=== PATIENT | female | born 1980 | race Caucasian/White ===

== ENCOUNTER 2018-03-12 13:13 | Emergency (ER) | payer OTHER, SELFPAY ==
[2018-03-12 13:14] VITALS: BP 148/98; PULSE 124; RESP 12; TEMP 37.3; O2SAT 96; BMI 43.4
[2018-03-12 14:25] LABS: Absolute Lymphocyte Count 1.93 X10^3/ul (0.83-4.51); Absolute Neutrophil Count 4.5 X10^3/uL (2.0-7.7); Basophil# 0.03 X10^3/uL; Basophil% 0.4 % (0-1); Eosinophil# 0.16 X10^3/uL; Eosinophils% 2.3 % (0-5); Hematocrit 41.3 % (37-47); Hemoglobin 14.5 g/dl (12.0-15.0); Lymphocyte # 1.93 X10^3/ul (4.0); Lymphocyte % 27.4 % (19-41); Mean Corp Hgb Conc 35.1 g/gl (32-36); Mean Corpuscular Hgb 31.7 pg (27.0-32.0); Mean Corpuscular Volume 90.4 fL (81-99); Mean Platelet Vol. 9.2 fl (6.2-12.0); Monocyte# 0.46 X10^3/uL; Monocyte% 6.5 % (0-10); Neutrophil # 4.45 X10^3/uL (2.7-7.7); Neutrophil % 63.1 % (47-70); Platelet Count 393 K/mm3 (150-450); RBC Distribution Width CV 12.8 % (11.6-14.6); RBC Distribution Width SD 41.8 fl (35.1-43.9); Red Blood Count 4.57 M/mm3 (4.2-5.4); White Blood Count 7.1 K/mm3 (4.4-11.0)
[2018-03-12 14:30] LABS: POSITIVE COUNT NO; POSITIVE DIFFERENTIAL NO; POSITIVE MORPHOLOGY NO
[2018-03-12 14:34] LABS: ALB/GLOB Ratio 1.1 RATIO (0.9-2.4); AST(SGOT) 16 U/L (15-37); Alanine Aminotransfer ALT/SGPT 23 U/L (13-56); Alkaline Phosphatase 97 U/L (45-117); Anion Gap 9 (5-15); BUN 10 mg/dL (7-18); BUN/Creat Ratio 11.2 RATIO (10-20); Calcium,Total 8.8 mg/dL (8.5-10.1); Chloride 105 mmol/L (98-107); EST Glomerular Filtration Rate 74 mL/min (>60); Est Glom Filt Rate - Afr Amer 90 mL/min (>60); Globulin 3.8 g/dL (2.2-4.2); Glucose 83 mg/dL (74-106); Potassium 3.7 mmol/L (3.5-5.1); Pregnancy, Serum, hCG Quali. NEGATIVE Negative (0-9 Nonpreg); Protein, Total 7.8 g/dL (6.4-8.2); Sodium Level 139 mmol/L (136-145)
[2018-03-12 14:56] LABS: Salicylate < 1.7 mg/dL (2.8-20.0)
[2018-03-12 14:57] VITALS: BP 126/96; PULSE 118; RESP 18; O2SAT 96
--- NOTE | 2018-03-12 15:12 | ED.RN ---
pt states has been very depressed lately. states when she woke up this am she just felt on the edge of a panic attack. then felt like she just could not go on. states i felt like i could not do it anymore. dr myers aware. states pt needs to be evaluated by crises. states if pt decides she does not want to stay she will be pink slipped
[2018-03-12 15:26] LABS: Acetaminophen (Tylenol) Level < 2.0 ug/mL (10.0-30.0)
[2018-03-12 15:32] VITALS: BP 122/103; PULSE 114; RESP 18
--- NOTE | 2018-03-12 15:34 | NURSING ---
CALLED CRISIS. WHEN SOMEONE IS AVAILABLE, THEY WILL COME OVER
--- NOTE | 2018-03-12 16:00 | ED.DCSUM_ITS ---
- ER Visit Summary Date of Service: 03/12/18 Chief Complaint: Overdose History of Present Illness: The patient is a 37 F presenting after overdose. Patient states she slept all night, when she woke up around 8 AM she took 10 Ambien. She states she just wanted to go back to sleep. She missed work. Her work called her around 11 AM and advised him that she did not show up for work. He went home to check on her and she was sleeping. She has made comments to the nurses that she has been very depressed and does not want to go on. She is on Prozac and Wellbutrin. She denies alcohol or drug use. Denies past suicide attempts. Physical Examination: Vitals are stable. Patient is afebrile. Alert no acute distress. HEENT exam is unremarkable. Neck is supple. Lungs are clear and equal bilaterally. Heart is regular rate and rhythm. Abdomen is soft nontender nondistended. Extremities are unremarkable. Skin is warm and dry. No focal neurologic deficit. Depressed affect Remainder of exam is unremarkable. Emergency Department Course and Treatment: CBC, chemistries unremarkable. HCG negative. Salicylate and Tylenol levels are negative. Alcohol is negative. Tox is pending. Discussed with the counseling center for evaluation. Disposition: Per counseling center Impression: Overdose, suicidal gesture This note was generated with Pace[employer] dictation software. It may contain incorrect words, spelling, and punctuation that were not noted in review of the chart prior to signing ED Disposition - Plan for ED Patient: Chief Complaint: Overdose Referrals: Stanley Giron DO [Primary Care Provider] -
[2018-03-12 16:01] LABS: Amphetamine Urine VISTA NEGATIVE (<1000 ng/mL); Barbiturate Urine VISTA NEGATIVE (< 200 ng/mL); Benzodiazepine Urine VISTA NEGATIVE (< 200 ng/mL); Cocaine Urine VISTA NEGATIVE (< 300 ng/mL); Ecstacy Urine VISTA POSITIVE (< 500 ng/mL); Methadone Urine VISTA NEGATIVE (< 300 ng/mL); PCP Urine VISTA NEGATIVE (< 25 ng/mL); THC Urine VISTA NEGATIVE (< 50 ng/mL); Vista UDS pH Range 6
[2018-03-12 16:11] VITALS: BP 146/101; PULSE 107; RESP 16; O2SAT 94
--- NOTE | 2018-03-12 16:41 | NURSING ---
CALLED CRISIS. 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
--- NOTE | 2018-03-12 17:44 | NURSING ---
HELEN, CRISIS, HERE
[2018-03-12 18:03] VITALS: BP 147/115; PULSE 110; RESP 18
--- NOTE | 2018-03-12 18:52 | ED.VISSUMM ---
- ER Visit Summary Date of Service: 03/12/18 Chief Complaint: [Addendum to initial dictation by Dr. Susanne Mcmillan] History of Present Illness: The patient is a 37 F [presented to the emergency department after ingesting 10 Ambien this morning. Patient was evaluated by crisis and I was asked to take over care of patient is Dr. Mcmillan shift was over. Crisis did not feel patient was suicidal and their recommendation is that she be discharged to home with close outpatient follow-up. Crisis spoke with Dr. Mcmillan who agreed to plan. Patient at this time denying suicidal ideation and she and her both feel comfortable going home with close outpatient follow-up. Patient denied making a suicidal gesture this morning but states that she just wanted to sleep and she had a panic attack.] Physical Examination: [HEENT-PERRLA, EOMI. Cranial nerves II through XII grossly intact. TMs clear. Mucous membranes moist. No adenopathy. Cardiovascular-regular rate and rhythm without murmur or ectopy Lungs-clear to auscultation, chest wall stable without crepitus or subcu emphysema Abdomen-normoactive bowel sounds, soft, nontender, no rebound or rigidity, no peritoneal signs. Extremities-intact ?4, normal range of motion, normal pulses, atraumatic] Test Results: [] Emergency Department Course and Treatment: [] Treatment Plan: [Discharged home with follow-up with crisis] Disposition: [Discharge] Impression: [Depression Accidental overdose] This note was generated with The[employer]or[employer] dictation software. It may contain incorrect words, spelling, and punctuation that were not noted in review of the chart prior to signing ED Disposition - Plan for ED Patient: Chief Complaint: Overdose Referrals: Stanley Giron DO [Primary Care Provider] -
--- NOTE | 2018-03-12 18:54 | ED.DEP ---
ED Disposition - Plan for ED Patient: Chief Complaint: Overdose Instructions: ED Overdose Accidental, ED Depression Referrals: Stanley Giron DO [Primary Care Provider] - Additional Instructions: follow up with crisis as instructed
[2018-03-12 19:11] VITALS: BP 132/91; PULSE 81; RESP 18; O2SAT 100
--- NOTE | 2018-03-12 19:11 | ED.RN ---
THIS NURSE REVIEWED D/C INSTRUCTIONS WITH PT. PT VERBALIZED UNDERSTANDING OF INSTRUCTIONS. IV D/C. IV CATHETER INTACT. PT TOLERATED WELL. PT DENIES FURTHER NEEDS OR QUESTIONS AT THIS TIME
== END 2018-03-12 19:12 | disposition home or self-care (01) ==
PROVIDERS: Emergency Provider Emergency Medicine; Family Provider Student in an Organized Health Care Education/Training Program; PCP Student in an Organized Health Care Education/Training Program
DX: T42.6X1A Poisoning by other antiepileptic and sedative-hypnotic drugs, accidental (unintentional), initial encounter (principal); Y92.009 Unspecified place in unspecified non-institutional (private) residence as the place of occurrence of the external cause; F32.9 Major depressive disorder, single episode, unspecified
CPT/HCPCS: 80053; 80307; 80320; 80329; 84703; 85025; 99283; A4216; G0480

== ENCOUNTER 2018-10-19 15:32 | Emergency (ER) | payer OTHER, SELFPAY ==
[2018-10-19 15:33] VITALS: BP 134/87; PULSE 92; RESP 16; TEMP 36.6; O2SAT 95; BMI 44.1
--- NOTE | 2018-10-19 16:37 | ED.VISSUMM ---
- ER Visit Summary Date of Service: 10/19/18 Chief Complaint: Wound check History of Present Illness: The patient is a 38 F who had gastric bypass surgery on October 10. She noted a wound on the left side of the abdomen to be more red today. She has noted some recent drainage of yellow tinged thin fluid. She denies fever or chills. She spoke with the gastric bypass surgery group at [place] and was advised to come to the emergency room. We are to call them with a report. Physical Examination: Vital signs unremarkable. Patient's lying in bed no acute distress. She is nontoxic appearing. Heart is regular rate and rhythm without murmur. Lung sounds are clear. Abdomen is soft with no significant focal tenderness. The left abdominal wall surgical incision has a 2 x 3 cm area of cellulitis surrounding it. The lateral 3 mm of the wound is dehisced with drainage of serosanguineous fluid. No palpable abscess is noted. Test Results: [] Emergency Department Course and Treatment: Bedside ultrasound was performed that showed an approximately 1 x 1.5 cm clear fluid collection at the point of interest. I spoke with Dr. Cardenas via 1 of the surgical residents at [facility]. He asked that the wound be opened and wet-to-dry dressings placed. 5 cc 1% lidocaine was infused along the incision. The wound was opened. There is drainage of serous fluid. Wound is cleansed and wet-to-dry dressings are applied. Patient is given supplies for wet-to-dry dressings twice a day. The surgical office will call her on Monday with follow-up. Patient will be placed on Bactrim and Keflex. Treatment Plan: [] Disposition: Discharge Impression: 1. Cellulitis of surgical wound 2. Seroma status post I&D This note was generated with Jibestream dictation software. It may contain incorrect words, spelling, and punctuation that were not noted in review of the chart prior to signing ED Disposition - Plan for ED Patient: Chief Complaint: Wound Check Referrals: Stanley Giron DO [Primary Care Provider] -
--- NOTE | 2018-10-19 16:39 | ED.DEP ---
ED Disposition - Plan for ED Patient: Disposition: Home or Assisted Living Chief Complaint: Wound Check Instructions: ED Wound Infec After Surgery Prescriptions: Cephalexin [Keflex] 500 mg PO Q6 #40 capsule Smz/Tmp Ds [Bactrim Ds] 1 tablet PO BID #20 tablet Referrals: Stanley Giron DO [Primary Care Provider] - Additional Instructions: Surgical office will contact you on Monday for follow-up. Wet-to-dry dressing changes twice a day as discussed.
[2018-10-19] MEDS: Cephalexin 250 MG Capsule 500 MG PO (16:46)
[2018-10-19] MEDS: Smz/Tmp Ds Tablet 1 TABLET PO (16:47)
[2018-10-19 16:50] VITALS: BP 130/78; PULSE 80; RESP 16; O2SAT 99
== END 2018-10-19 16:51 | disposition home or self-care (01) ==
PROVIDERS: Emergency Provider Emergency Medicine; Family Provider Student in an Organized Health Care Education/Training Program; PCP Student in an Organized Health Care Education/Training Program
DX: L76.34 Postprocedural seroma of skin and subcutaneous tissue following other procedure (principal); T81.41XA Infection following a procedure, superficial incisional surgical site, initial encounter; L03.311 Cellulitis of abdominal wall; B96.89 Other specified bacterial agents as the cause of diseases classified elsewhere; T81.31XA Disruption of external operation (surgical) wound, not elsewhere classified, initial encounter; Z98.84 Bariatric surgery status; F32.9 Major depressive disorder, single episode, unspecified
CPT/HCPCS: 10140; 10060; 99284

== ENCOUNTER 2021-08-28 05:21 | Emergency (ER) | payer OTHER, SELFPAY ==
[2021-08-28 05:21] VITALS: BP 128/79; PULSE 70; RESP 28; TEMP 36.3; O2SAT 95; BMI 32.8
--- NOTE | 2021-08-28 05:37 | EKG12_ITS ---
Test Reason : DYSRHYTHMIA Blood Pressure : / mmHG Vent. Rate : 067 BPM Atrial Rate : 067 BPM P-R Int : 138 ms QRS Dur : 076 ms QT Int : 416 ms P-R-T Axes : 028 018 021 degrees QTc Int : 439 ms Normal sinus rhythm Normal ECG Confirmed by NATI ALCALA, JULITA ([id number]), writer editor HARLEY DALY ([id number]) on 08/30/2021 1:18:23 PM Referred By: YASH Confirmed By:JULITA DAMIAN MD
--- NOTE | 2021-08-28 05:37 | ED.VIS.DYS ---
HPI History of Present Illness Chief Complaint: Shortness of Breath Informant: patient Narrative Narrative: 41-year-old female Covid positive day 11 presenting to the emergency department with shortness of breath. The patient reports that she took a home Covid test that was positive. She states her had at first. She notes shortness of breath has gotten significantly worse today she is having pain in the anterior aspect of her chest particularly deep breathing and with coughing. No hemoptysis. She has a history of asthma. [facility] Medical History Asthma Home Medications bupropion HCl 300 mg PO DAILY 03/12/18 [History Last Taken Unknown] fluoxetine 40 mg PO DAILY 03/12/18 [History Last Taken Unknown] albuterol sulfate 2 puff INHALATION Q6H PRN 08/28/21 [History Last Taken Unknown] dexamethasone 6 mg PO DAILY #5 tab 08/28/21 [Rx Last Taken Unknown] Allergy/AdvReac Type Severity Reaction Status Date / Time codeine AdvReac Nausea Verified 08/28/21 05:26 Surgical History Gastric bypass status for obesity Social History (Updated 08/28/21 @ 05:[address] Tr Scott DO) Smoking Status: Never smoker substance use type: does not use ROS ROS ED Constitutional Constitutional ED: Reports fever(s); Denies chills or weight loss Eyes Eyes: Denies change in vision or diplopia ENT ENT ED: Denies ear pain, rhinorrhea or sore throat Cardiovascular Cardiovascular: Denies chest pain, orthopnea, palpitations or racing heartbeat Respiratory/Chest Respiratory/Chest: Reports cough, dyspnea and dyspnea on exertion; Denies orthopnea Gastrointestinal Gastrointestinal: Reports diarrhea; Denies abdominal pain, nausea or vomiting Genitourinary Genitourinary ED: Denies dysuria, hematuria or urinary frequency Musculoskeletal Musculoskeletal: Reports myalgias; Denies arthralgias Integumentary Denies abscess or rash Neurologic Neurologic: Reports headache(s); Denies weakness Psychiatric Psychiatric: Denies anxiety, depression, suicidal ideation or suicidal thoughts Endocrine Endocrinology: Denies polydipsia, polyphagia or polyuria Allergic/Immunologic Allergic/Immunologic ED: Denies mouth swelling, tongue swelling or urticaria EXAM Physical Exam Const Vital Signs: 08/28/21 05:21 Temperature 97.4 F L Temperature Source Temporal Pulse Rate 70 Respiratory Rate 28 H Blood Pressure 128/79 H Blood Pressure Mean 95 Pulse Ox 95 Oxygen Delivery Method Room Air Positive well nourished and well developed General Appearance ED: well developed HEENT Reports normocephalic, head/scalp atraumatic and moist mucous membranes Eyes PERRL and EOMs intact bilaterally Neck no lymphadenopathy, supple and no JVD Resp clear to auscultation bilaterally Resp Narrative: Patient appears tachypneic but able to speak in full sentences Cardio regular rate, regular rhythm and no murmurs GI normal to inspection, nondistended, normoactive bowel sounds and non-tender Palpation: soft Back/Spine no CVA tenderness and normal ROM Extremity normal to inspection General Extremety ED: Negative for edema General Extremity: Negative for edema Neuro oriented x3 and CN's II-XII intact bilaterally Sensorium / Orientation: alert Motor Exam: strength 5/5 throughout Psych mental status grossly normal Mood & Affect: Negative for depressed or tearful Skin no rashes or lesions noted and no wounds MDM MDM MDM Narrative Medical decision making narrative: Basic blood work was obtained and shows a white count of 5.8 hemoglobin of 11.8. Lactic acid 1.7. Troponin high-sensitivity 5. CTA of the chest shows no pulmonary embolism. There is multifocal areas of infiltrate consistent with COVID-19. This point patient is not requiring any supplemental oxygen. While she is resting her breathing is at 18. When she wakes up her breathing increases. Patient will be started on Decadron. She has an inhaler. Lab Data Attestation: I reviewed the patient's lab results. Labs: Laboratory Results - last 24 hr 08/28/21 08/28/21 08/28/21 05:50 05:50 05:50 WBC 5.8 RBC 3.84 L Hgb 11.8 L Hct 35.4 L MCV 92.2 MCH 30.7 MCHC 33.3 RDW Std Deviation 41.1 RDW Coeff of Kirt 12.2 Plt Count 240 MPV 10.6 Immature Gran % (Auto) 0.300 Neut % (Auto) 77.4 H Lymph % (Auto) 18.7 L Cataño % (Auto) 3.4 Eos % (Auto) 0.0 Baso % (Auto) 0.2 Absolute Neuts (auto) 4.5 Absolute Lymphs (auto) 1.09 Nucleated RBC % 0 Sodium 140 Potassium 3.5 Chloride 105 Carbon Dioxide 26.0 Anion Gap 9 BUN 9 Creatinine 0.72 Estim Creat Clear Calc 113.40 Est GFR (MDRD) Af Amer 115 Est GFR (MDRD) Non-Af 95 BUN/Creatinine Ratio 12.6 Glucose 104 Lactic Acid 1.7 Calcium 8.3 L Total Bilirubin 0.20 AST 33 ALT 35 Alkaline Phosphatase 107 Troponin I High Sens 5 Total Protein 7.2 Albumin 3.2 Globulin 4.0 Albumin/Globulin Ratio 0.8 L Radiography Diagnostic Testing: Radiology Impression Chest CTA 08/28/21 06:15 IMPRESSION: Bilateral multifocal pneumonia. Normal CTA chest examination, without a demonstrated pulmonary embolism or arterial dissection. Electronically Signed: Pop Morley MD at 6:54 EDT Tel , Service support , EKG Initial EKG: Attestation: I personally reviewed and interpreted this EKG as follows: Comments: Normal sinus rhythm with a ventricular rate of 67 bpm Discharge Plan Triage Chief Complaint: Shortness of Breath ED Provider: Tr Scott Dx/Rx/DC Orders Clinical Impression: COVID-19, Acute dyspnea Instructions: Coronavirus Disease 2019 (COVID-19): Caring for Yourself or Others Prescriptions: New dexamethasone 6 MG tablet 6 mg PO DAILY Qty: 5 RF: 0 No Action fluoxetine 40 MG capsule 40 mg PO DAILY RF: 0 bupropion HCl 300 MG tablet extended release 24 hr 300 mg PO DAILY RF: 0 albuterol sulfate 90 mcg/actuation Hfa Aerosol Inhaler 2 puff INHALATION Q6H PRN (Reason: SHORT) RF: 0 Primary Care Provider: Stanley Giron Referrals: Stanley Giron DO [Primary Care Provider] - As Needed Disposition Disposition: Home, Self Care
[2021-08-28] MEDS: Ketorolac 30 MG/ML Syringe IV (05:54)
[2021-08-28 06:07] LABS: Absolute Lymphocyte Count 1.09 X10^3/uL (0.83-4.51); Absolute Neutrophil Count 4.5 X10^3/uL (2.0-7.7); Basophil# 0.01 X10^3/uL; Basophil% 0.2 % (0-1); Hematocrit 35.4 % (37-47); Hemoglobin 11.8 g/dL (12.0-15.0); Lymphocyte # 1.09 X10^3/ul (0.83-4.51); Lymphocyte % 18.7 % (19-41); Mean Corp Hgb Conc 33.3 g/dL (32-36); Mean Corpuscular Hgb 30.7 pg (27.0-32.0); Mean Corpuscular Volume 92.2 fL (81-99); Mean Platelet Vol. 10.6 fl (6.2-12.0); Monocyte% 3.4 % (0-10); NRBC Flagged by Analyzer 0 % (0-5); Neutrophil # 4.52 X10^3/uL (2.7-7.7); Neutrophil % 77.4 % (47-70); Platelet Count 240 K/mm3 (150-450); RBC Distribution Width CV 12.2 % (11.6-14.6); RBC Distribution Width SD 41.1 fl (35.1-43.9); Red Blood Count 3.84 M/mm3 (4.2-5.4); White Blood Count 5.8 K/mm3 (4.4-11.0)
--- NOTE | 2021-08-28 06:15 | CT_ITS ---
STUDY: CTA CHEST REASON FOR EXAM: Female, 41 years old. Covid 19, increased shortness of breath, pulmonary embolism RADIATION DOSAGE (If Supplied By Facility): CTDIvol = ( 8.31 ) mGy, DLP = ( 273.03 ) mGycm TECHNIQUE: The examination was performed with the intravenous administration of IV 100mL Isovue-370. Post-processing of the angiographic images was performed, with multiplanar reformation and 3D reconstruction. Individualized dose optimization techniques were used for this CT. COMPARISON: None. FINDINGS: Normal enhancement of the main pulmonary artery and right and left pulmonary arteries. Normal enhancement of the bilateral peripheral pulmonary arteries. There is no demonstrated pulmonary embolism. Normal thoracic aorta and visualized great vessels. There is no demonstrated aortic dissection. Normal heart and pericardium. Normal mediastinum. Normal hilar regions. Normal visualized trachea and bronchi. The lungs are well expanded. Diffuse bilateral patchy groundglass opacities. Normal pleura. Normal chest wall structures. There are degenerative changes of thoracic spine. Prior upper gastric surgery. CT/CTA Chest W/WO Contrast IMPRESSION: Bilateral multifocal pneumonia. Normal CTA chest examination, without a demonstrated pulmonary embolism or arterial dissection. Electronically Signed: Pop Morley MD at 6:54 EDT Tel , Service support ,
[2021-08-28 06:26] LABS: ALB/GLOB Ratio 0.8 RATIO (0.9-2.4); AST(SGOT) 33 U/L (15-37); Alanine Aminotransfer ALT/SGPT 35 U/L (13-56); Albumin, Serum 3.2 g/dL (3.2-5.0); Alkaline Phosphatase 107 U/L (45-117); Anion Gap 9 (5-15); BUN 9 mg/dL (7-18); BUN/Creat Ratio 12.6 RATIO (10-20); Calcium,Total 8.3 mg/dL (8.5-10.1); Chloride 105 mmol/L (98-107); Creatinine, Serum 0.72 mg/dL (0.55-1.02); EST Glomerular Filtration Rate 95 mL/min (>60); Est Glom Filt Rate - Afr Amer 115 mL/min (>60); Glucose 104 mg/dL (74-106); Potassium 3.5 mmol/L (3.5-5.1); Protein, Total 7.2 g/dL (6.4-8.2); Sodium Level 140 mmol/L (136-145); Troponin-I HS 5 pg/mL (3.0-54.0)
[2021-08-28 06:40] LABS: Lactic Acid 1.7 mmol/L (0.4-1.9)
[2021-08-28 07:21] VITALS: BP 111/70; PULSE 65; RESP 15; O2SAT 97
[2021-08-28] MEDS: dexAMETHasone 4 MG Tablet 6 MG PO (07:33)
== END 2021-08-28 07:40 | disposition home or self-care (01) ==
PROVIDERS: Emergency Provider Emergency Medicine; PCP Student in an Organized Health Care Education/Training Program
DX: U07.1 COVID-19 (principal); R06.00 Dyspnea, unspecified; J45.909 Unspecified asthma, uncomplicated; Z79.899 Other long term (current) drug therapy
CPT/HCPCS: 71275; 80053; 83605; 84484; 85025; 93005; 96374; 99284; J7030; Q9967; A4216

== ENCOUNTER 2021-08-30 13:34 | Emergency (ER) | payer OTHER, SELFPAY ==
[2021-08-30 13:34] VITALS: BP 103/68; PULSE 92; RESP 19; TEMP 37.2; O2SAT 81; BMI 31.3
[2021-08-30 13:36] VITALS: BP 118/77; PULSE 61; PULSE 67; RESP 18; TEMP 37.3; O2SAT 94
--- NOTE | 2021-08-30 14:12 | RAD_ITS ---
STUDY: X-RAY CHEST REASON FOR EXAM: Female, 41 years old. SOB TECHNIQUE: Single AP portable view of the chest. COMPARISON: None. FINDINGS: Patchy alveolar opacities in both lungs consistent with bilateral pneumonia. There is no demonstrated pleural abnormality. Normal size heart. Normal mediastinum and arthur. Normal visualized pulmonary arteries. Normal visualized aortic arch and descending thoracic aorta. Normal visualized thoracic spine. Normal visualized ribs, clavicles, and shoulders. There is no demonstrated abnormality of the visualized soft tissue structures of the upper abdomen. RAD/Chest 1 View IMPRESSION: Bilateral pneumonia. Electronically Signed: Won Mohan MD at 14:26 EDT Tel , Service support ,
[2021-08-30 17:24] VITALS: BP 118/77; PULSE 65; RESP 18; TEMP 37.2; O2SAT 94
[2021-08-30 17:38] VITALS: O2SAT 92
--- NOTE | 2021-08-30 17:59 | ED.VIS.DYS ---
HPI History of Present Illness Chief Complaint: Shortness of Breath Informant: patient and spouse/S.O. Onset/Context/Timing Onset: Days Context: gradual Timing: Continuous Current Severity: Mild Maximum Severity: Mild Worsened by: Exertion Relieved by: Nothing Associated Symptoms cough, fever and chills Chest Pain: Positive for None Narrative Narrative: 41-year-old female diagnosed with COVID-19 last Monday has had 10 days of symptoms. She is on Decadron the last 3 days. She has a pulse ox at home it was dropping as low as 76 earlier today so she came in emergency department. She denies any hemoptysis. No significant chest pain. She is currently not on home O2. Due to the timing she is not a candidate for monoclonal antibody. PE Risk Factors: Negative for Cancer, OCP + Smoking + > 35, Prior DVT or PE, Recent immobilization, Recent surgery and Recent travel Prior similar symptoms: No Recent Illness/Hospitalization: No PFSH PFSH Medical History Asthma Home Medications bupropion HCl 300 mg PO DAILY 03/12/18 [History Last Taken Unknown] fluoxetine 40 mg PO DAILY 03/12/18 [History Last Taken Unknown] albuterol sulfate 2 puff INHALATION Q6H PRN 08/28/21 [History Last Taken Unknown] dexamethasone 6 mg PO DAILY #5 tab 08/28/21 [Rx Last Taken Unknown] dexamethasone [Decadron] 6 mg PO DAILY #7 tab 08/30/21 [Rx Last Taken Unknown] Allergy/AdvReac Type Severity Reaction Status Date / Time codeine AdvReac Nausea Verified 08/30/21 17:23 Surgical History Gastric bypass status for obesity History of cholecystectomy Social History Smoking Status: Never smoker substance use type: does not use ROS ROS ED ROS Narrative Cough and shortness of breath. Review of Systems ROS Unobtainable: Denies due to encephalopathy Constitutional Constitutional ED: Reports chills; Denies fever(s) Eyes Eyes: Denies change in vision ENT ENT ED: Reports rhinorrhea; Denies ear pain or sore throat Cardiovascular Cardiovascular: Denies chest pain Respiratory/Chest Respiratory/Chest: Reports cough and dyspnea Gastrointestinal Gastrointestinal: Denies abdominal pain, diarrhea, nausea or vomiting Genitourinary Genitourinary ED: Denies dysuria Musculoskeletal Musculoskeletal: Reports myalgias Integumentary Denies rash Neurologic Neurologic: Denies headache(s) Psychiatric Psychiatric: Denies depression Endocrine Endocrinology: Denies polyuria Hematologic/Lymphatic Hematologic/Lymphatic: Denies easy bruising Allergic/Immunologic Allergic/Immunologic ED: Denies urticaria EXAM Physical Exam Narrative Exam Narrative: Right female no acute distress pulse ox 81% on room air. Temperature 99. She does not look septic or toxic. HEENT exam unremarkable. Neck nontender no lymphadenopathy. Lungs auscultation bilaterally. Heart regular rhythm no murmur rate about 70. Abdomen soft nontender. Moving all 4 extremities. Calves nontender without edema or cords. Neurologically she is awake and alert. Const Vital Signs: 08/30/21 13:34 08/30/21 13:36 08/30/21 17:24 Temperature 99 F 99.2 F H 99.0 F Temperature Source Temporal Oral Oral Pulse Rate 92 67 65 Respiratory Rate 19 H 18 18 Respiratory Effort Short of Breath Respiratory Depth Shallow Respiratory Pattern Tachypnea Blood Pressure 103/68 118/77 118/77 Blood Pressure Mean 79 90 90 Pulse Ox 81 94 94 Oxygen Delivery Method Room Air Room Air Room Air Positive well nourished and well developed; Negative for obese, cachectic, contractures or unkempt General Appearance ED: well developed and NAD; Negative for unkempt, cachectic or contractures Nutritional Appearance: Negative for cachectic or obese HEENT Reports moist mucous membranes atraumatic; Negative for trauma or tenderness Eyes PERRL and EOMs intact bilaterally Neck no lymphadenopathy, supple, no meningeal signs and no JVD General: Negative for tenderness Resp normal respiratory effort and clear to auscultation bilaterally Auscultation: Negative for rales, rhonchi, wheezes or diminished lung sounds Cardio regular rate, regular rhythm, S1 normal heart sound, S2 normal heart sound and no murmurs GI non-tender, non-distended and no masses Auscultation: normoactive bowel sounds Palpation: soft and tender; Negative for guarding Back/Spine no CVA tenderness and normal to inspection General Back: Negative for CVA tenderness Extremity normal to inspection General Extremety ED: Negative for edema or tenderness General Extremity: Negative for edema Neuro oriented x3 Sensorium / Orientation: alert, oriented to person and oriented to place; Negative for oriented to time, confused, lethargic or stuporous Motor Exam: strength 5/5 throughout Psych mental status grossly normal Appearance: Negative for unkempt Skin no wounds Lesions: no lesions Rashes: no rashes MDM MDM MDM Narrative Medical decision making narrative: 41-year-old female Covid +10 days of symptoms. On Decadron for the last 3 to 4 days. Not on home O2. Now having episodes of hypoxia. Radiography Chest X-Ray - ED: 1 View, Read by ED Physician, Normal, Mediastinum, Bony Structures, Right Infiltrate and Left Infiltrate Diagnostic Testing: Radiology Impression Chest X-Ray 08/30/21 14:12 IMPRESSION: Bilateral pneumonia. Electronically Signed: Won Mohan MD at 14:26 EDT Tel , Service support , Single portable view chest x-ray is consistent with Covid pneumonitis of bilateral infiltrates. Reviewed by myself and radiologist. Discharge Plan Triage Chief Complaint: Shortness of Breath ED Provider: Jose Lopez Dx/Rx/DC Orders Clinical Impression: COVID-19, Acute dyspnea, Hypoxia Instructions: Human Coronaviruses Prescriptions: New dexamethasone [Decadron] 6 mg tablet 6 mg PO DAILY Qty: 7 RF: 0 No Action fluoxetine 40 MG capsule 40 mg PO DAILY RF: 0 bupropion HCl 300 MG tablet extended release 24 hr 300 mg PO DAILY RF: 0 albuterol sulfate 90 mcg/actuation Hfa Aerosol Inhaler 2 puff INHALATION Q6H PRN (Reason: SHORT) RF: 0 dexamethasone 6 MG tablet 6 mg PO DAILY Qty: 5 RF: 0 Primary Care Provider: Stanley Giron Referrals: Stanley Giron DO [Primary Care Provider] - 1 Week if not improving Activity Restrictions/Additional Instructions: Continue the Decadron I wrote you another weeks worth. Finish your current prescription and then start the no Decadron prescription. Tylenol and/or Motrin for fever. Oxygen at home. Return if feeling a lot worse. Disposition Disposition: Home, Self Care
--- NOTE | 2021-08-30 18:11 | CM.ED ---
CHANELLE Note Referral Source: MD Referral Reason: Home oxygen MD stated patient needs home oxygen. Reports patient was 78% at home and 87-88 in the ED. RN completed oxygen stats and rpeorted patient patient is not on cpap or bipap at home. CHANELLE spoke to Jon at [facility] [place] and made referral to patient to receive home oxygen. CHANELLE faxed referral packet to [facility] [place]. CHANELLE sent email to [place] [phone] to advise them of patient's discharge from ED wth home oxygen. CHANELLE spoke to Juan Jose at [facility] [place] and he will drop off tank to hospital in 1 hour and then call patient for set up. Plan: Home with oxygen Deirdre GIBSON
[2021-08-30 20:32] VITALS: BP 122/79; PULSE 62; RESP 18; O2SAT 97
--- NOTE | 2021-08-31 11:47 | CASEMGMT ---
[facility] ED COVID Home O2 Follow-up: This [facility] contacted pt via phone for home O2 follow-up. Pt states she is doing alright. Noted pt to sound SOB with speaking and an occasional cough. Pt reports to be wearing her O2 at 2l/min and her PO has been up to 95% at rest and decreases to 85% with any activity including sitting up or prone position. Instructed pt to increase her O2 to 3-4l/min with ambulation and then decrease the O2 back to 2l/min when at rest with goal of PO in the 90's with activity and at rest. Instructed to return to the ED if this increase does not maintain her PO in the 90's. Pt states she has contacted Dr. Giron's office and provided an update this morning including her PO decreasing into the 80's with activity. Pt states they are to call her back. Pt states she did obtain the decadron. Pt states she is hungry but doesn't want to get up to get food. Pt states she is sipping on a protein shake currently. Pt's is present and is able to assist her as needed. Pt states she is trying as much as possible to stay isolated from others. Reports her to have had COVID first and has recovered. Will continue to follow and assist as needed. Gloria Farias RN CM
--- NOTE | 2021-09-01 16:45 | CASEMGMT ---
[facility] ED COVID Home O2 Follow-up: This RN TERRI contacted pt via phone for continued follow-up. Pt states she is feeling pretty good. States she is doing better today as evidenced by her PO staying 91% with activity on 2l/min instead of decreasing to 85% with activity. States she was increasing her O2 to 3l/min yesterday when ambulating but has not needed to do that today. Pt reports her PO at rest to be 95-96%. Pt states she did hear back from Dr. Giron's office and they provided further guidance on her medications. She has a follow-up appointment scheduled with Dr. Giron on Monday. Pt denies any further questions or concern at this time. Gloria Farias RN CM
== END 2021-08-30 20:32 | disposition home or self-care (01) ==
LOC: ED 18:06
PROVIDERS: Emergency Provider Emergency Medicine; PCP Student in an Organized Health Care Education/Training Program
DX: U07.1 COVID-19 (principal); R06.00 Dyspnea, unspecified; R09.02 Hypoxemia; J45.909 Unspecified asthma, uncomplicated; Z79.52 Long term (current) use of systemic steroids; Z79.899 Other long term (current) drug therapy
CPT/HCPCS: 71045; 99283